=== PATIENT | female | born 1960 | race Caucasian/White ===

== ENCOUNTER 2016-10-28 16:02 | Outpatient (CLI) | payer OTHER ==
--- NOTE | 2016-10-29 03:49 | Diagnostic Imaging Report ---
BROOKS HAMPTON~ [facility] [address] [facility].[address] [id number] ~ ~ ~ ~ Report Submission Date: October 28, 2016 5:26:52 PM CDT Patient ~ Study Name: TYRON WALKER ~ Date: October 28, 2016 4:34:54 PM CDT ~ Modality Type: CR Gender: F ~ Description: PELVIS : 56 ~ Institution: [facility] Physician: BROOKS HAMPTON ~ ~ ~ ~ Left hip 2 views Clinical history pain Technique AP and frog leg Findings: There is Joint space narrowing in the superior hip joint. No fracture scanning necrosis is identified.. Arthritic changes are identified of the sacroiliac joint. Bone density is normal for age Impression: Degenerative arthritis with no acute pathology ~ Electronically signed on October 28, 2016 5:26:52 PM CDT by: Remi CLARK
== END 2016-10-28 16:03 ==
LOC: RAD 16:02
PROVIDERS: ATTEND Family Medicine
DX: M16.12 Unilateral primary osteoarthritis, left hip (principal)

== ENCOUNTER 2017-06-02 08:55 | Outpatient (CLI) | payer OTHER | END 2017-06-02 08:56 | LOC: LAB 08:55 | PROVIDERS: ATTEND Physician Assistant | DX: Z79.01 Long term (current) use of anticoagulants (principal) | CPT/HCPCS: 36415; 85610 ==

== ENCOUNTER 2017-06-07 09:23 | Outpatient (CLI) | payer OTHER | END 2017-06-07 09:24 | LOC: LAB 09:23 | PROVIDERS: ATTEND Physician Assistant | DX: Z79.01 Long term (current) use of anticoagulants (principal) | CPT/HCPCS: 36415; 85610 ==

== ENCOUNTER 2017-06-09 07:56 | Outpatient (CLI) | payer OTHER | END 2017-06-09 07:57 | LOC: LAB 07:56 | PROVIDERS: ATTEND Physician Assistant | DX: Z79.01 Long term (current) use of anticoagulants (principal); Z96.643 Presence of artificial hip joint, bilateral | CPT/HCPCS: 36415; 85610 ==

== ENCOUNTER 2017-06-13 08:57 | Outpatient (CLI) | payer OTHER | END 2017-06-13 09:00 | LOC: LAB 08:57 | PROVIDERS: ATTEND Physician Assistant | DX: Z79.01 Long term (current) use of anticoagulants (principal) | CPT/HCPCS: 36415; 85610 ==

== ENCOUNTER 2017-06-16 08:11 | Outpatient (CLI) | payer OTHER | END 2017-06-16 08:12 | LOC: LAB 08:11 | PROVIDERS: ATTEND Physician Assistant | DX: Z51.81 Encounter for therapeutic drug level monitoring (principal); Z96.643 Presence of artificial hip joint, bilateral | CPT/HCPCS: 36415; 85610 ==

== ENCOUNTER 2017-06-22 08:33 | Outpatient (CLI) | payer OTHER | END 2017-06-22 08:34 | LOC: LAB 08:33 | PROVIDERS: ATTEND Physician Assistant | DX: Z96.643 Presence of artificial hip joint, bilateral (principal); Z79.01 Long term (current) use of anticoagulants | CPT/HCPCS: 36415; 85610 ==